=== PATIENT | female | born 1990 | race African-American/Black ===

== ENCOUNTER 2018-06-17 17:00 | Emergency (ER) | payer BC, OTHER ==
[~2018-06-17] VITALS: Ht 157.5 cm; Wt 49.9 kg
--- NOTE | ~2018-06-17 | EKG ---
[place] [address] [facility] [place] [address] ELECTROCARDIOGRAM REPORT Name: SHAILESH FLETCHER Room #: DEP Rosalia#: [id number] Admission: 06/17/18 Attend Phys: Discharge: 06/17/18 Date of : 89 Report #: [id number] THIS REPORT FOR: //name// [facility] ED Test Date: 2018-06-17 Test Time: 17:08:23 Pat Name: SHAILESH FLETCHER Department: Room: Gender: F Front Office Director: [facility] : 1990 Requested By: Pattie Jay Order Number: [id number] MD: Feliciano Demarco Measurements Intervals [place] Rate: 85 P: 37 W[place]: 135 QRS: 71 QRSD: 79 T: 48 QT: 361 QTc: 430 Interpretive Statements Sinus rhythm Normal tracing No previous ECG available for comparison Electronically Signed On 06-18-2018 8:30:48 CDT by Feliciano Demarco [email or web address] <ELECTRONICALLY SIGNED> By: Feliciano Demarco MD, [facility] 06/18/18 0830 1708 1708 Feliciano Demarco MD, FACC /EPI
[~2018-06-17 17:00] MED LIST: CIPROFLOXACIN500 M1 PO; DEPO-PROVER150 MG/M1; EPIPEN 2-P0.3 MG/0.3 IM; ERYTHROMYCIN E3.5 G1 OPHTHALMIC; FELDENE20 MG; FOLIC ACID1 MG; HUMIRA20 MG/0.4 SC; METHOTREXA1 GM/40 ML IM; NORCO 5-325 TA1 EACH PO; PEPCID20 MG PO; PREDNISOLONE 5 M5 M1; PREDNISONE 20 M20 MG PO
[2018-06-17 17:25] LABS: ABSOLUTE NEUTROPHILS 4.7 thou/uL (1.4-8.2); BASOPHILS 0.9 % (0.0-2.0); EOSINOPHILS 3.1 % (0.0-3.0); HEMATOCRIT 40.5 % (37.0-47.0); HEMOGLOBIN 13.7 gm/dL (12.0-15.0); LYMPHOCYTES 22.1 % (24.0-44.0); MCH 28.2 pg (26.0-34.0); MCHC 33.9 g/dL (28.0-37.0); MCV 83.1 fL (80.0-100.0); PLATELET COUNT 261 thou/uL (150-400); POLYS 62.9 % (36.0-66.0); RBC 4.87 mil/uL (4.20-5.00); WBC 7.4 thou/uL (4.0-11.0)
[2018-06-17 17:34] LABS: ANION GAP 10 mmol/L (7-16); BUN 9 mg/dL (7-18); CALCIUM 9.4 mg/dL (8.5-10.1); CHLORIDE 99 mmol/L (98-107); CO2 23 mmol/L (21-32); CREATININE 0.9 mg/dL (0.6-1.0); GLUCOSE 90 mg/dL (74-106); POTASSIUM 4.1 mmol/L (3.5-5.1); SODIUM 132 mmol/L (136-145)
[2018-06-17 17:42] LABS: TROPONIN-I <0.06 ng/mL (<0.06)
[2018-06-17] MEDS ORDERED: ROBITUSSIN100 MG/53 PO (19:04)
[2018-06-17 19:14] VITALS: BP 122/75
== END 2018-06-17 19:15 | disposition home or self-care (01) ==
LOC: ER 17:00
PROVIDERS: Emergency Medicine
DX: O99.511 Diseases of the respiratory system complicating pregnancy, first trimester (principal); J06.9 Acute upper respiratory infection, unspecified; J02.8 Acute pharyngitis due to other specified organisms; B97.89 Other viral agents as the cause of diseases classified elsewhere; M06.9 Rheumatoid arthritis, unspecified; Z3A.08 8 weeks gestation of pregnancy